=== PATIENT | male | born 1950 | race Caucasian/White ===

== ENCOUNTER 2021-02-01 18:09 | Inpatient (IN) ==
[2021-02-01] MEDS ORDERED: methylPREDNISolone 125 MG/2 ML VIAL IVP ONE (18:24)
[2021-02-01] MEDS ORDERED: Ipratropium/Albuterol Neb 3 ML IH ONE (18:45)
[2021-02-01 18:46] LABS: Basophils # 0.1 K/mcL (0.0-0.2); Basophils % 0.5 %; Hematocrit 45.4 % (37.5-50.1); Hemoglobin 14.4 g/dL (12.9-16.9); Immature Granulocytes % 0.8 % (0-4); Lymphocytes # 0.5 K/mcL (0.6-4.6); Lymphocytes % 4.6 %; Mean Corpuscular HGB Conc 31.7 g/dL (31.6-35.5); Mean Corpuscular Hemoglobin 30.9 pg (28.0-33.3); Mean Corpuscular Volume 97.4 fL (83.0-100.0); Mean Platelet Volume 10.5 fL (9.4-12.4); Monocytes # 0.8 K/mcL (0.0-1.3); Monocytes % 7.7 %; Neutrophils # 8.6 K/mcL (1.6-8.9); Platelet Count 245 K/mcL (140-400); Red Blood Count 4.66 M/mcL (4.19-5.50); Red Cell Distribution Width 14.6 % (11.5-14.5); Segmented Neutrophils % 86.4 %; White Blood Count 9.9 K/mcL (4.3-11.1)
[2021-02-01 18:51] LABS: VBG HCO3 24 mEq/L (21-27); VBG PCO2 54 mmHg (41-51); VBG PH 7.26 pH Units (7.32-7.42); VBG PO2 41 mmHg (25-50)
[2021-02-01] MEDS ORDERED: *HR* Digoxin 0.5 MG/2 ML AMPUL IVP ONE (18:54)
[2021-02-01 19:07] LABS: INR 12.1; Prothrombin Time 130.8 Seconds (9.4-12.1)
[2021-02-01 19:09] LABS: Alanine Aminotransferase 18 Units/L (7-52); Albumin 3.6 g/dL (3.5-5.7); Albumin/Globulin Ratio 0.9 (1.1-2.2); Alkaline Phosphatase 137 Units/L (34-104); Aspartate Amino Transferase 44 Units/L (13-39); BUN/Creatinine Ratio 22 (6-26); Bilirubin,Direct 1.2 mg/dL (0.0-0.2); Bilirubin,Indirect 1.2 mg/dL (0.0-1.0); Bilirubin,Total 2.4 mg/dL (0.3-1.0); Blood Urea Nitrogen 28 mg/dL (8-23); Calcium 8.7 mg/dL (8.6-10.3); Carbon Dioxide 21 mEq/L (23-29); Chloride 93 mEq/L (98-107); Globulin 3.9 g/dL (2.4-3.5); Glucose 108 mg/dL (70-105); Osmolality,Calculated 278 (280-300); Potassium 4.2 mEq/L (3.5-5.1); Sodium 131 mEq/L (136-145); Total Protein 7.5 g/dL (6.4-8.9); eGFR For African Americans > 60 (> 60); eGFR For Non-African Americans 55 (> 60)
[2021-02-01] MEDS ORDERED: Vancomycin 2,000 MG/520 ML IV.SOLN IVPB ONE (19:09)
[2021-02-01] MEDS ORDERED: Piperacillin/Tazobactam 3.375 GM in Water for inj. (sterile) 20 ML IVP ONE (19:09)
[2021-02-01 19:12] LABS: Troponin I 0.15 ng/mL (< 0.04)
[2021-02-01] MEDS ORDERED: Furosemide 60 MG in 0.9 % Sodium Chloride 50 ML IV ONE (19:23)
[2021-02-01] MEDS: Norepinephrine 4 MG/254 ML IV.SOLN IVC SCH ×2 (19:37→21:37)
[2021-02-01 20:00] LABS: Digoxin 1.2 ng/mL (0.8-2.0)
[2021-02-01] MEDS ORDERED: Isovue-370 500 ML BOTTLE IVP ONE (20:13)
[2021-02-01] MEDS ORDERED: Naloxone 0.4 MG/ML INJ IVP PRN (20:14)
[2021-02-01] MEDS ORDERED: Ondansetron 4 MG/2 ML VIAL IVP PRN (20:14)
[2021-02-01 20:32] LABS: Adenovirus Not Detected (Not Detect); Coronavirus 229E Not Detected (Not Detect); Coronavirus HKU1 Not Detected (Not Detect); Coronavirus NL63 Not Detected (Not Detect); Coronavirus OC43 Not Detected (Not Detect)
[2021-02-01 20:37] LABS: Bordetella Pertussis Not Detected (Not Detect); Chlamydophila pneumoniae Not Detected (Not Detect); Human Metapneumovirus Not Detected (Not Detect); Human Rhinovirus/Enterovirus Not Detected (Not Detect); Influenza A Subtype 2009 H1 Not Detected (Not Detect); Influenza B Not Detected (Not Detect); Mycoplasma pneumoniae Not Detected (Not Detect); Parainfluenza Virus 1 Not Detected (Not Detect); Parainfluenza Virus 2 Not Detected (Not Detect); Parainfluenza Virus 3 Not Detected (Not Detect); Parainfluenza Virus 4 Not Detected (Not Detect); Respiratory Syncytial Virus Not Detected (Not Detect)
[2021-02-01 20:42] LABS: SARS-CoV-2 DETECTED (Not Detect)
[2021-02-01 20:44] LABS: Bilirubin,Urine Negative (Negative); Blood,Urine Small (Negative); Clarity,Urine Turbid (Clear); Color,Urine Yellow (Yellow); Glucose,Urine (UA) Normal (Normal); Hyaline Casts,Urine Many per lpf (None Seen); Ketones,Urine Negative (Negative); Leukocyte Esterase,Urine Negative (Negative); Mucus,Urine Few per lpf (None-Few); Nitrite,Urine Negative (Negative); Protein,Urine 30 mg/dL (Neg-Trace); Specific Gravity,Urine 1.014 (1.010-1.025)
[2021-02-01] MEDS ORDERED: Acetaminophen 325 MG TABLET PO PRN (21:07)
[2021-02-01] MEDS ORDERED: Benzonatate 100 MG CAPSULE PO PRN (21:07)
[2021-02-01] MEDS ORDERED: Tiotropium 10 INH DOSE IH SCH (21:15)
[2021-02-01 21:24] LABS: Sodium, Urine 14.6 mEq/L
[2021-02-01] MEDS: Zinc Sulfate 220 MG CAPSULE PO SCH (22:23)
[2021-02-02] MEDS: Ipratropium 1 PUFF INHALER IH SCH ×6 (00:25→20:10)
[2021-02-02 01:05] LABS: Bacteria,Urine Few per hpf (None-Few); Bilirubin,Urine Negative (Negative); Blood,Urine Small (Negative); Clarity,Urine Clear (Clear); Color,Urine Yellow (Yellow); Glucose,Urine (UA) Normal (Normal); Granular Casts,Urine Few per lpf (None Seen); Hyaline Casts,Urine Few per lpf (None Seen); Ketones,Urine Negative (Negative); Leukocyte Esterase,Urine Negative (Negative); Mucus,Urine Few per lpf (None-Few); Nitrite,Urine Negative (Negative); Protein,Urine Trace mg/dL (Neg-Trace); RBC,Urine 0-3 per hpf (0-3); Specific Gravity,Urine 1.028 (1.010-1.025); Squamous Epithelial Cell,Urine Few per hpf (None-Few); Urobilinogen,Urine Normal (Normal); WBC,Urine 0-3 per hpf (0-3)
[2021-02-02 01:08] LABS: ABG Base Excess -1 mEq/L (-2 to 3); ABG HCO3 29 mEq/L (21-27); ABG Oxygen Saturation 83 % (95-98); ABG PCO2 66 mmHg (35-45); ABG PH 7.24 pH Units (7.32-7.45); ABG PO2 57 mmHg (85-104); ABG TCO2 31 mEq/L (20-26); Blood Gas VT 500 cc
[2021-02-02 05:56] LABS: Hematocrit 44.7 % (37.5-50.1); Hemoglobin 13.9 g/dL (12.9-16.9); Mean Corpuscular HGB Conc 31.1 g/dL (31.6-35.5); Mean Corpuscular Hemoglobin 30.5 pg (28.0-33.3); Mean Corpuscular Volume 98.2 fL (83.0-100.0); Platelet Count 234 K/mcL (140-400); Red Blood Count 4.55 M/mcL (4.19-5.50); Red Cell Distribution Width 14.6 % (11.5-14.5); White Blood Count 8.5 K/mcL (4.3-11.1)
[2021-02-02] MEDS: Doxycycline 100 MG in 0.9 % Sodium Chloride Mini Bag 100 ML IVPB SCH ×2 (05:57→17:47)
[2021-02-02 06:07] LABS: Alanine Aminotransferase 15 Units/L (7-52); Albumin 3.2 g/dL (3.5-5.7); Albumin/Globulin Ratio 0.9 (1.1-2.2); Alkaline Phosphatase 109 Units/L (34-104); Aspartate Amino Transferase 38 Units/L (13-39); BUN/Creatinine Ratio 29 (6-26); Bilirubin,Total 1.5 mg/dL (0.3-1.0); Blood Urea Nitrogen 31 mg/dL (8-23); Calcium 8.3 mg/dL (8.6-10.3); Carbon Dioxide 26 mEq/L (23-29); Chloride 97 mEq/L (98-107); Chol/HDL Ratio 5.5 (0-4.9); Cholesterol 71 mg/dL (< 200); Globulin 3.4 g/dL (2.4-3.5); Glucose 145 mg/dL (70-105); HDL Cholesterol 13 mg/dL (40-59); LDL Cholesterol,Calculated 45 mg/dL (< 100); Osmolality,Calculated 283 (280-300); Potassium 4.3 mEq/L (3.5-5.1); Sodium 132 mEq/L (136-145); Total Protein 6.6 g/dL (6.4-8.9); Triglycerides 64 mg/dL (< 150); eGFR For African Americans > 60 (> 60); eGFR For Non-African Americans > 60 (> 60)
[2021-02-02 06:09] LABS: Magnesium 2.4 mg/dL (1.6-2.6); Phosphorous 4.3 mg/dL (2.7-4.5)
[2021-02-02 06:12] LABS: Troponin I 0.11 ng/mL (< 0.04)
[2021-02-02 06:14] LABS: ABG Base Excess 0 mEq/L (-2 to 3); ABG HCO3 29 mEq/L (21-27); ABG Oxygen Saturation 78 % (95-98); ABG PCO2 64 mmHg (35-45); ABG PH 7.26 pH Units (7.32-7.45); ABG PO2 50 mmHg (85-104); ABG TCO2 31 mEq/L (20-26); Blood Gas VT 500 cc
[2021-02-02 06:27] LABS: INR 10.6
[2021-02-02] MEDS: cefTRIAXone 1,000 MG in Water for inj. (sterile) 10 ML IVP SCH (07:47)
[2021-02-02] MEDS: Furosemide 40 MG/4 ML VIAL IVP SCH ×2 (07:48→17:44)
[2021-02-02] MEDS: Zinc Sulfate 220 MG CAPSULE PO SCH (07:49)
[2021-02-02] MEDS ORDERED: Pantoprazole 40 MG VIAL IVP ONE (11:13)
[2021-02-02] MEDS: Norepinephrine 4 MG/254 ML IV.SOLN IVC SCH (19:15)
[2021-02-03] MEDS: Ipratropium 1 PUFF INHALER IH SCH ×7 (00:27→23:46)
[2021-02-03] MEDS: Doxycycline 100 MG in 0.9 % Sodium Chloride Mini Bag 100 ML IVPB SCH ×2 (06:28→17:43)
[2021-02-03 07:18] LABS: Hematocrit 44.9 % (37.5-50.1); Hemoglobin 14.3 g/dL (12.9-16.9); Mean Corpuscular HGB Conc 31.8 g/dL (31.6-35.5); Mean Corpuscular Hemoglobin 30.7 pg (28.0-33.3); Mean Corpuscular Volume 96.4 fL (83.0-100.0); Mean Platelet Volume 10.6 fL (9.4-12.4); Platelet Count 248 K/mcL (140-400); Red Blood Count 4.66 M/mcL (4.19-5.50); Red Cell Distribution Width 14.3 % (11.5-14.5); White Blood Count 12.6 K/mcL (4.3-11.1)
[2021-02-03 07:39] LABS: INR 3.2; Prothrombin Time 35.4 Seconds (9.4-12.1)
[2021-02-03 08:10] LABS: BUN/Creatinine Ratio 43 (6-26); Blood Urea Nitrogen 36 mg/dL (8-23); Calcium 8.9 mg/dL (8.6-10.3); Carbon Dioxide 28 mEq/L (23-29); Chloride 104 mEq/L (98-107); Glucose 131 mg/dL (70-105); Osmolality,Calculated 304 (280-300); Potassium 4.6 mEq/L (3.5-5.1); Sodium 142 mEq/L (136-145); eGFR For African Americans > 60 (> 60); eGFR For Non-African Americans > 60 (> 60)
[2021-02-03] MEDS: Dexamethasone Sodium Phos/PF 10 MG/ML VIAL IVP SCH (08:33)
[2021-02-03] MEDS: Furosemide 40 MG/4 ML VIAL IVP SCH ×2 (08:36→17:43)
[2021-02-03] MEDS: Pantoprazole 40 MG VIAL IVP SCH (08:36)
[2021-02-03] MEDS: cefTRIAXone 1,000 MG in Water for inj. (sterile) 10 ML IVP SCH (08:36)
[2021-02-03] MEDS: Zinc Sulfate 220 MG CAPSULE PO SCH (08:36)
[2021-02-03] MEDS: *HR* Enoxaparin 120 MG/0.8 ML SYRINGE SQ SCH (17:58)
[2021-02-04] MEDS: Ipratropium 1 PUFF INHALER IH SCH ×6 (04:04→23:35)
[2021-02-04 05:12] LABS: INR 3.3; Prothrombin Time 36.6 Seconds (9.4-12.1)
[2021-02-04 05:16] LABS: Hematocrit 39.9 % (37.5-50.1); Hemoglobin 13.5 g/dL (12.9-16.9); Red Blood Count 4.28 M/mcL (4.19-5.50); White Blood Count 10.1 K/mcL (4.3-11.1)
[2021-02-04 05:17] LABS: Basophils % 0.1 %; Immature Granulocytes % 0.3 % (0-4); Lymphocytes # 0.2 K/mcL (0.6-4.6); Lymphocytes % 2.4 %; Mean Corpuscular HGB Conc 33.8 g/dL (31.6-35.5); Mean Corpuscular Hemoglobin 31.5 pg (28.0-33.3); Mean Corpuscular Volume 93.2 fL (83.0-100.0); Mean Platelet Volume 10.9 fL (9.4-12.4); Monocytes # 0.4 K/mcL (0.0-1.3); Monocytes % 3.9 %; Neutrophils # 9.4 K/mcL (1.6-8.9); Platelet Count 241 K/mcL (140-400); Segmented Neutrophils % 93.3 %
[2021-02-04 05:19] LABS: Alanine Aminotransferase 16 Units/L (7-52); Albumin 3.3 g/dL (3.5-5.7); Albumin/Globulin Ratio 0.9 (1.1-2.2); Alkaline Phosphatase 101 Units/L (34-104); Aspartate Amino Transferase 41 Units/L (13-39); BUN/Creatinine Ratio 49 (6-26); Bilirubin,Total 1.2 mg/dL (0.3-1.0); Blood Urea Nitrogen 44 mg/dL (8-23); Calcium 8.7 mg/dL (8.6-10.3); Carbon Dioxide 26 mEq/L (23-29); Chloride 97 mEq/L (98-107); Globulin 3.5 g/dL (2.4-3.5); Glucose 157 mg/dL (70-105); Osmolality,Calculated 288 (280-300); Sodium 132 mEq/L (136-145); Total Protein 6.8 g/dL (6.4-8.9); eGFR For African Americans > 60 (> 60); eGFR For Non-African Americans > 60 (> 60)
[2021-02-04] MEDS: *HR* Enoxaparin 120 MG/0.8 ML SYRINGE SQ SCH (05:57)
[2021-02-04] MEDS: Doxycycline 100 MG in 0.9 % Sodium Chloride Mini Bag 100 ML IVPB SCH ×2 (05:58→17:30)
[2021-02-04 06:08] LABS: Magnesium 2.5 mg/dL (1.6-2.6); Phosphorous 2.3 mg/dL (2.7-4.5)
[2021-02-04 06:28] LABS: VBG Ionized Calcium 1.16 mmol/L (1.15-1.35)
[2021-02-04] MEDS: Zinc Sulfate 220 MG CAPSULE PO SCH (07:26)
[2021-02-04] MEDS: Pantoprazole 40 MG VIAL IVP SCH (07:27)
[2021-02-04] MEDS: cefTRIAXone 1,000 MG in Water for inj. (sterile) 10 ML IVP SCH (07:27)
[2021-02-04] MEDS: Dexamethasone Sodium Phos/PF 10 MG/ML VIAL IVP SCH (07:27)
[2021-02-04] MEDS: Norepinephrine 4 MG/254 ML IV.SOLN IVC SCH ×2 (07:28→22:19)
[2021-02-04] MEDS: Furosemide 40 MG/4 ML VIAL IVP SCH ×2 (07:28→17:29)
[2021-02-04] MEDS ORDERED: Perflutren Lipid Microsphere 1.3 ML in 0.9 % Sodium Chloride 8.7 ML IVP PRN (15:03)
[2021-02-05] MEDS: Ipratropium 1 PUFF INHALER IH SCH ×5 (03:25→20:04)
[2021-02-05 05:06] LABS: Basophils % 0.1 %; Hematocrit 39.8 % (37.5-50.1); Hemoglobin 13.3 g/dL (12.9-16.9); Immature Granulocytes % 0.6 % (0-4); Lymphocytes # 0.2 K/mcL (0.6-4.6); Lymphocytes % 2.1 %; Mean Corpuscular HGB Conc 33.4 g/dL (31.6-35.5); Mean Corpuscular Volume 92.8 fL (83.0-100.0); Monocytes # 0.6 K/mcL (0.0-1.3); Monocytes % 5.3 %; Neutrophils # 9.5 K/mcL (1.6-8.9); Platelet Count 230 K/mcL (140-400); Red Blood Count 4.29 M/mcL (4.19-5.50); Red Cell Distribution Width 14.1 % (11.5-14.5); Segmented Neutrophils % 91.9 %; White Blood Count 10.4 K/mcL (4.3-11.1)
[2021-02-05 05:11] LABS: BUN/Creatinine Ratio 44 (6-26); Blood Urea Nitrogen 47 mg/dL (8-23); Calcium 8.6 mg/dL (8.6-10.3); Carbon Dioxide 28 mEq/L (23-29); Chloride 98 mEq/L (98-107); Glucose 129 mg/dL (70-105); Magnesium 2.5 mg/dL (1.6-2.6); Osmolality,Calculated 294 (280-300); Phosphorous 3.2 mg/dL (2.7-4.5); Potassium 4.1 mEq/L (3.5-5.1); Sodium 135 mEq/L (136-145); eGFR For African Americans > 60 (> 60); eGFR For Non-African Americans > 60 (> 60)
[2021-02-05] MEDS: Doxycycline 100 MG in 0.9 % Sodium Chloride Mini Bag 100 ML IVPB SCH ×2 (06:14→17:05)
[2021-02-05 06:59] LABS: INR 4.4
[2021-02-05] MEDS: Pantoprazole 40 MG VIAL IVP SCH (07:27)
[2021-02-05] MEDS: cefTRIAXone 1,000 MG in Water for inj. (sterile) 10 ML IVP SCH (07:27)
[2021-02-05] MEDS: Dexamethasone Sodium Phos/PF 10 MG/ML VIAL IVP SCH (07:28)
[2021-02-05] MEDS: Furosemide 40 MG/4 ML VIAL IVP SCH ×2 (07:28→17:05)
[2021-02-05] MEDS: Zinc Sulfate 220 MG CAPSULE PO SCH (07:28)
[2021-02-05] MEDS ORDERED: *HR* Phytonadione 5 MG TABLET PO ONE (08:30)
[2021-02-05] MEDS ORDERED: *HR* Enoxaparin 120 MG/0.8 ML SYRINGE SQ SCH (09:00)
[2021-02-05] MEDS: Norepinephrine 4 MG/254 ML IV.SOLN IVC SCH (19:30)
[2021-02-06 03:56] LABS: Basophils % 0.1 %; Hematocrit 40.9 % (37.5-50.1); Hemoglobin 13.1 g/dL (12.9-16.9); Immature Granulocytes % 0.6 % (0-4); Lymphocytes # 0.3 K/mcL (0.6-4.6); Lymphocytes % 1.6 %; Mean Corpuscular Hemoglobin 30.2 pg (28.0-33.3); Mean Corpuscular Volume 94.2 fL (83.0-100.0); Mean Platelet Volume 11.3 fL (9.4-12.4); Monocytes # 0.7 K/mcL (0.0-1.3); Monocytes % 4.7 %; Neutrophils # 14.5 K/mcL (1.6-8.9); Platelet Count 204 K/mcL (140-400); Red Blood Count 4.34 M/mcL (4.19-5.50); Red Cell Distribution Width 14.1 % (11.5-14.5)
[2021-02-06 03:58] LABS: White Blood Count 15.6 K/mcL (4.3-11.1)
[2021-02-06 04:07] LABS: INR 4.2
[2021-02-06] MEDS: Ipratropium 1 PUFF INHALER IH SCH ×7 (04:10→23:27)
[2021-02-06 04:14] LABS: BUN/Creatinine Ratio 46 (6-26); Blood Urea Nitrogen 46 mg/dL (8-23); Calcium 8.7 mg/dL (8.6-10.3); Carbon Dioxide 30 mEq/L (23-29); Chloride 100 mEq/L (98-107); Glucose 124 mg/dL (70-105); Magnesium 2.5 mg/dL (1.6-2.6); Osmolality,Calculated 297 (280-300); Phosphorous 2.9 mg/dL (2.7-4.5); Potassium 4.1 mEq/L (3.5-5.1); Sodium 137 mEq/L (136-145); eGFR For African Americans > 60 (> 60); eGFR For Non-African Americans > 60 (> 60)
[2021-02-06] MEDS: Doxycycline 100 MG in 0.9 % Sodium Chloride Mini Bag 100 ML IVPB SCH ×2 (06:05→18:05)
[2021-02-06] MEDS: Furosemide 40 MG/4 ML VIAL IVP SCH (08:34)
[2021-02-06] MEDS: Pantoprazole 40 MG VIAL IVP SCH (08:34)
[2021-02-06] MEDS: Dexamethasone Sodium Phos/PF 10 MG/ML VIAL IVP SCH (08:34)
[2021-02-06] MEDS: Zinc Sulfate 220 MG CAPSULE PO SCH (08:35)
[2021-02-06] MEDS ORDERED: *HR* Enoxaparin 120 MG/0.8 ML SYRINGE SQ SCH (10:00)
[2021-02-06] MEDS ORDERED: *HR* Phytonadione 5 MG TABLET PO ONE (11:02)
[2021-02-06] MEDS: Furosemide 240 MG in 0.9 % Sodium Chloride 96 ML IVC SCH (11:19)
[2021-02-06 22:09] LABS: BUN/Creatinine Ratio 49 (6-26); Blood Urea Nitrogen 47 mg/dL (8-23); Calcium 8.2 mg/dL (8.6-10.3); Carbon Dioxide 29 mEq/L (23-29); Chloride 100 mEq/L (98-107); Glucose 251 mg/dL (70-105); Magnesium 2.2 mg/dL (1.6-2.6); Osmolality,Calculated 305 (280-300); Potassium 4.1 mEq/L (3.5-5.1); Sodium 137 mEq/L (136-145); eGFR For African Americans > 60 (> 60); eGFR For Non-African Americans > 60 (> 60)
[2021-02-07 03:23] LABS: Basophils % 0.1 %; Hematocrit 41.9 % (37.5-50.1); Hemoglobin 13.6 g/dL (12.9-16.9); Immature Granulocytes % 0.8 % (0-4); Lymphocytes # 0.3 K/mcL (0.6-4.6); Lymphocytes % 1.5 %; Mean Corpuscular HGB Conc 32.5 g/dL (31.6-35.5); Mean Corpuscular Hemoglobin 30.4 pg (28.0-33.3); Mean Corpuscular Volume 93.5 fL (83.0-100.0); Mean Platelet Volume 11.6 fL (9.4-12.4); Monocytes # 0.5 K/mcL (0.0-1.3); Monocytes % 3.2 %; Neutrophils # 15.9 K/mcL (1.6-8.9); Nucleated Red Blood Cells 0.1 /100 WBC (0); Platelet Count 194 K/mcL (140-400); Red Blood Count 4.48 M/mcL (4.19-5.50); Red Cell Distribution Width 14.2 % (11.5-14.5); Segmented Neutrophils % 94.4 %; White Blood Count 16.9 K/mcL (4.3-11.1)
[2021-02-07] MEDS: Ipratropium 1 PUFF INHALER IH SCH ×6 (03:25→23:33)
[2021-02-07 03:38] LABS: BUN/Creatinine Ratio 52 (6-26); Blood Urea Nitrogen 45 mg/dL (8-23); Calcium 8.6 mg/dL (8.6-10.3); Carbon Dioxide 31 mEq/L (23-29); Chloride 100 mEq/L (98-107); Glucose 149 mg/dL (70-105); Magnesium 2.2 mg/dL (1.6-2.6); Osmolality,Calculated 300 (280-300); Phosphorous 2.7 mg/dL (2.7-4.5); Potassium 4.2 mEq/L (3.5-5.1); Sodium 138 mEq/L (136-145); eGFR For African Americans > 60 (> 60); eGFR For Non-African Americans > 60 (> 60)
[2021-02-07 05:22] LABS: INR 2.8; Prothrombin Time 31.7 Seconds (9.4-12.1)
[2021-02-07] MEDS ORDERED: 0.9 % Sodium Chloride 1,000 ML ONE (08:42)
[2021-02-07] MEDS: Zinc Sulfate 220 MG CAPSULE PO SCH (08:43)
[2021-02-07] MEDS: Pantoprazole 40 MG VIAL IVP SCH (08:43)
[2021-02-07] MEDS: Dexamethasone Sodium Phos/PF 10 MG/ML VIAL IVP SCH (08:44)
[2021-02-07] MEDS: Furosemide 240 MG in 0.9 % Sodium Chloride 96 ML IVC SCH (09:37)
[2021-02-07 11:09] LABS: Alanine Aminotransferase 26 Units/L (7-52); Albumin 3.3 g/dL (3.5-5.7); Albumin/Globulin Ratio 0.9 (1.1-2.2); Alkaline Phosphatase 105 Units/L (34-104); Aspartate Amino Transferase 43 Units/L (13-39); Bilirubin,Direct 0.4 mg/dL (0.0-0.2); Bilirubin,Indirect 0.7 mg/dL (0.0-1.0); Bilirubin,Total 1.1 mg/dL (0.3-1.0); C-Reactive Protein 35 mg/L (Less than 10); Globulin 3.8 g/dL (2.4-3.5); Total Protein 7.1 g/dL (6.4-8.9)
[2021-02-07] MEDS: *HR* Enoxaparin 120 MG/0.8 ML SYRINGE SQ SCH (17:20)
[2021-02-08] MEDS: Ipratropium 1 PUFF INHALER IH SCH ×5 (03:46→20:16)
[2021-02-08 04:33] LABS: Basophils % 0.2 %; Hemoglobin 13.8 g/dL (12.9-16.9); Immature Granulocytes % 0.8 % (0-4); Lymphocytes # 0.3 K/mcL (0.6-4.6); Lymphocytes % 1.6 %; Mean Corpuscular HGB Conc 32.1 g/dL (31.6-35.5); Mean Corpuscular Hemoglobin 30.3 pg (28.0-33.3); Mean Corpuscular Volume 94.5 fL (83.0-100.0); Mean Platelet Volume 11.9 fL (9.4-12.4); Monocytes # 0.4 K/mcL (0.0-1.3); Monocytes % 2.4 %; Neutrophils # 17.4 K/mcL (1.6-8.9); Platelet Count 175 K/mcL (140-400); Red Blood Count 4.55 M/mcL (4.19-5.50); Red Cell Distribution Width 14.2 % (11.5-14.5); White Blood Count 18.3 K/mcL (4.3-11.1)
[2021-02-08 04:53] LABS: BUN/Creatinine Ratio 55 (6-26); Blood Urea Nitrogen 40 mg/dL (8-23); Calcium 8.5 mg/dL (8.6-10.3); Carbon Dioxide 35 mEq/L (23-29); Chloride 98 mEq/L (98-107); Glucose 129 mg/dL (70-105); Osmolality,Calculated 301 (280-300); Phosphorous 2.7 mg/dL (2.7-4.5); Potassium 4.4 mEq/L (3.5-5.1); Sodium 140 mEq/L (136-145); eGFR For African Americans > 60 (> 60); eGFR For Non-African Americans > 60 (> 60)
[2021-02-08] MEDS: *HR* Enoxaparin 120 MG/0.8 ML SYRINGE SQ SCH ×2 (06:04→18:22)
[2021-02-08] MEDS: Dexamethasone Sodium Phos/PF 10 MG/ML VIAL IVP SCH (08:16)
[2021-02-08] MEDS: Pantoprazole 40 MG VIAL IVP SCH (08:16)
[2021-02-08] MEDS: Zinc Sulfate 220 MG CAPSULE PO SCH (08:17)
[2021-02-08] MEDS: Furosemide 240 MG in 0.9 % Sodium Chloride 96 ML IVC SCH (12:15)
[2021-02-09] MEDS: Ipratropium 1 PUFF INHALER IH SCH ×7 (00:04→23:57)
[2021-02-09 04:15] LABS: Basophils % 0.1 %; Hematocrit 44.5 % (37.5-50.1); Hemoglobin 14.3 g/dL (12.9-16.9); Immature Granulocytes % 0.8 % (0-4); Lymphocytes # 0.4 K/mcL (0.6-4.6); Lymphocytes % 2.4 %; Mean Corpuscular HGB Conc 32.1 g/dL (31.6-35.5); Mean Corpuscular Hemoglobin 30.4 pg (28.0-33.3); Mean Corpuscular Volume 94.7 fL (83.0-100.0); Monocytes # 0.3 K/mcL (0.0-1.3); Monocytes % 1.8 %; Neutrophils # 14.4 K/mcL (1.6-8.9); Platelet Count 147 K/mcL (140-400); Red Cell Distribution Width 14.2 % (11.5-14.5); Segmented Neutrophils % 94.9 %; White Blood Count 15.2 K/mcL (4.3-11.1)
[2021-02-09 04:25] LABS: INR 2.4; Prothrombin Time 27.1 Seconds (9.4-12.1)
[2021-02-09 04:33] LABS: BUN/Creatinine Ratio 49 (6-26); Blood Urea Nitrogen 38 mg/dL (8-23); Calcium 8.7 mg/dL (8.6-10.3); Carbon Dioxide 38 mEq/L (23-29); Chloride 96 mEq/L (98-107); Glucose 124 mg/dL (70-105); Magnesium 2.2 mg/dL (1.6-2.6); Osmolality,Calculated 296 (280-300); Potassium 4.7 mEq/L (3.5-5.1); Sodium 138 mEq/L (136-145); eGFR For African Americans > 60 (> 60); eGFR For Non-African Americans > 60 (> 60)
[2021-02-09] MEDS: *HR* Enoxaparin 120 MG/0.8 ML SYRINGE SQ SCH ×2 (06:21→17:06)
[2021-02-09] MEDS: Zinc Sulfate 220 MG CAPSULE PO SCH (07:59)
[2021-02-09] MEDS: Pantoprazole 40 MG VIAL IVP SCH (08:00)
[2021-02-09] MEDS: Dexamethasone Sodium Phos/PF 10 MG/ML VIAL IVP SCH (08:00)
[2021-02-09] MEDS: Furosemide 240 MG in 0.9 % Sodium Chloride 96 ML IVC SCH (19:38)
[2021-02-10] MEDS: Ipratropium 1 PUFF INHALER IH SCH ×5 (04:11→20:31)
[2021-02-10 04:58] LABS: Basophils % 0.1 %; Hematocrit 43.3 % (37.5-50.1); Immature Granulocytes % 1.2 % (0-4); Lymphocytes # 0.3 K/mcL (0.6-4.6); Lymphocytes % 2.3 %; Mean Corpuscular HGB Conc 32.3 g/dL (31.6-35.5); Mean Corpuscular Hemoglobin 30.6 pg (28.0-33.3); Mean Corpuscular Volume 94.5 fL (83.0-100.0); Mean Platelet Volume 12.5 fL (9.4-12.4); Monocytes # 0.4 K/mcL (0.0-1.3); Monocytes % 2.6 %; Neutrophils # 13.5 K/mcL (1.6-8.9); Platelet Count 141 K/mcL (140-400); Red Blood Count 4.58 M/mcL (4.19-5.50); Red Cell Distribution Width 14.3 % (11.5-14.5); Segmented Neutrophils % 93.8 %; White Blood Count 14.4 K/mcL (4.3-11.1)
[2021-02-10 05:08] LABS: Prothrombin Time 22.5 Seconds (9.4-12.1)
[2021-02-10] MEDS: *HR* Enoxaparin 120 MG/0.8 ML SYRINGE SQ SCH ×2 (05:08→16:56)
[2021-02-10 05:16] LABS: BUN/Creatinine Ratio 55 (6-26); Blood Urea Nitrogen 39 mg/dL (8-23); Calcium 8.6 mg/dL (8.6-10.3); Carbon Dioxide 40 mEq/L (23-29); Chloride 95 mEq/L (98-107); Glucose 119 mg/dL (70-105); Magnesium 2.2 mg/dL (1.6-2.6); Osmolality,Calculated 295 (280-300); Phosphorous 3.6 mg/dL (2.7-4.5); Potassium 4.8 mEq/L (3.5-5.1); Sodium 137 mEq/L (136-145); eGFR For African Americans > 60 (> 60); eGFR For Non-African Americans > 60 (> 60)
[2021-02-10] MEDS ORDERED: acetaZOLAMIDE 375 MG in Water for inj. (sterile) 3.75 ML IVP ONE (06:58)
[2021-02-10] MEDS: Zinc Sulfate 220 MG CAPSULE PO SCH (08:11)
[2021-02-10] MEDS: Dexamethasone Sodium Phos/PF 10 MG/ML VIAL IVP SCH (08:11)
[2021-02-10] MEDS: Pantoprazole 40 MG VIAL IVP SCH (08:11)
[2021-02-10 14:10] LABS: ABG Base Excess 9 mEq/L (-2 to 3); ABG HCO3 38 mEq/L (21-27); ABG Oxygen Saturation 90 % (95-98); ABG PCO2 67 mmHg (35-45); ABG PH 7.36 pH Units (7.32-7.45); ABG PO2 64 mmHg (85-104); ABG TCO2 40 mEq/L (20-26); Blood Gas Modality AVAPS; Blood Gas VT 500 cc
[2021-02-11] MEDS: Ipratropium 1 PUFF INHALER IH SCH ×7 (00:01→23:23)
[2021-02-11 04:02] LABS: Hematocrit 43.7 % (37.5-50.1); Hemoglobin 13.9 g/dL (12.9-16.9); Mean Corpuscular HGB Conc 31.8 g/dL (31.6-35.5); Mean Corpuscular Hemoglobin 30.3 pg (28.0-33.3); Mean Corpuscular Volume 95.2 fL (83.0-100.0); Mean Platelet Volume 12.7 fL (9.4-12.4); Platelet Count 143 K/mcL (140-400); Red Blood Count 4.59 M/mcL (4.19-5.50); Red Cell Distribution Width 14.2 % (11.5-14.5); White Blood Count 14.6 K/mcL (4.3-11.1)
[2021-02-11 04:11] LABS: INR 1.7; Prothrombin Time 19.5 Seconds (9.4-12.1)
[2021-02-11 04:21] LABS: BUN/Creatinine Ratio 54 (6-26); Blood Urea Nitrogen 35 mg/dL (8-23); Calcium 9.1 mg/dL (8.6-10.3); Carbon Dioxide 38 mEq/L (23-29); Chloride 94 mEq/L (98-107); Glucose 161 mg/dL (70-105); Magnesium 2.5 mg/dL (1.6-2.6); Osmolality,Calculated 293 (280-300); Phosphorous 3.7 mg/dL (2.7-4.5); Potassium 5.1 mEq/L (3.5-5.1); Sodium 136 mEq/L (136-145); eGFR For African Americans > 60 (> 60); eGFR For Non-African Americans > 60 (> 60)
[2021-02-11] MEDS: *HR* Enoxaparin 120 MG/0.8 ML SYRINGE SQ SCH ×2 (06:08→17:47)
[2021-02-11] MEDS: Pantoprazole 40 MG VIAL IVP SCH (08:00)
[2021-02-11] MEDS: Furosemide 240 MG in 0.9 % Sodium Chloride 96 ML IVC SCH (08:00)
[2021-02-11] MEDS: Zinc Sulfate 220 MG CAPSULE PO SCH (08:02)
[2021-02-11] MEDS: Dexamethasone Sodium Phos/PF 10 MG/ML VIAL IVP SCH (08:02)
[2021-02-11] MEDS ORDERED: Dexmedetomidine HCl 400 MCG/100 ML MLS IVC ONE (17:57)
[2021-02-11] MEDS: Dexmedetomidine HCl 400 MCG/100 ML MLS IVC SCH (19:18)
[2021-02-11] MEDS ORDERED: QUEtiapine Fumarate 25 MG TABLET PO SCH (21:00)
[2021-02-12] MEDS: Ipratropium 1 PUFF INHALER IH SCH ×6 (03:52→23:35)
[2021-02-12 03:53] LABS: Basophils % 0.1 %; Hematocrit 42.1 % (37.5-50.1); Hemoglobin 13.8 g/dL (12.9-16.9); Immature Granulocytes % 0.6 % (0-4); Lymphocytes # 0.3 K/mcL (0.6-4.6); Lymphocytes % 2.2 %; Mean Corpuscular HGB Conc 32.8 g/dL (31.6-35.5); Mean Corpuscular Volume 94.6 fL (83.0-100.0); Mean Platelet Volume 12.9 fL (9.4-12.4); Monocytes # 0.4 K/mcL (0.0-1.3); Monocytes % 2.8 %; Neutrophils # 13.3 K/mcL (1.6-8.9); Platelet Count 118 K/mcL (140-400); Red Blood Count 4.45 M/mcL (4.19-5.50); Segmented Neutrophils % 94.3 %; White Blood Count 14.1 K/mcL (4.3-11.1)
[2021-02-12] MEDS: Dexmedetomidine HCl 400 MCG/100 ML MLS IVC SCH (03:58)
[2021-02-12 03:59] LABS: VBG Ionized Calcium 1.17 mmol/L (1.15-1.35)
[2021-02-12 04:00] LABS: Prothrombin Time 22.5 Seconds (9.4-12.1)
[2021-02-12 04:35] LABS: BUN/Creatinine Ratio 66 (6-26); Blood Urea Nitrogen 39 mg/dL (8-23); Calcium 8.7 mg/dL (8.6-10.3); Carbon Dioxide 40 mEq/L (23-29); Chloride 94 mEq/L (98-107); Glucose 118 mg/dL (70-105); Magnesium 2.2 mg/dL (1.6-2.6); Osmolality,Calculated 296 (280-300); Phosphorous 4.5 mg/dL (2.7-4.5); Potassium 5.1 mEq/L (3.5-5.1); Sodium 138 mEq/L (136-145); eGFR For African Americans > 60 (> 60); eGFR For Non-African Americans > 60 (> 60)
[2021-02-12 04:54] LABS: ABG Base Excess 11 mEq/L (-2 to 3); ABG HCO3 38 mEq/L (21-27); ABG Oxygen Saturation 74 % (95-98); ABG PCO2 61 mmHg (35-45); ABG PH 7.41 pH Units (7.32-7.45); ABG PO2 41 mmHg (85-104); ABG TCO2 40 mEq/L (20-26); Blood Gas Modality AVAPS
[2021-02-12] MEDS: *HR* Enoxaparin 120 MG/0.8 ML SYRINGE SQ SCH ×2 (06:18→17:52)
[2021-02-12] MEDS: Pantoprazole 40 MG VIAL IVP SCH (07:40)
[2021-02-12] MEDS: Albumin Human 5% 12.5 GM/250 ML IV.SOLN IVC SCH ×2 (07:40→12:15)
[2021-02-12] MEDS: Zinc Sulfate 220 MG CAPSULE PO SCH (07:40)
[2021-02-12] MEDS ORDERED: Lidocaine -MPF 1% 5 ML AMPUL INFILT ONE (09:34)
[2021-02-12] MEDS ORDERED: *HR* FentaNYL (PF) 100 MCG/2 ML VIAL ONE (10:42)
[2021-02-12] MEDS ORDERED: *HR* FentaNYL (PF) 100 MCG/2 ML VIAL IVP ONE ×2 (10:48→10:56)
[2021-02-12] MEDS ORDERED: *HR* FentaNYL (PF) 200 MCG/4 ML SYRINGE IVP ONE (10:50)
[2021-02-12] MEDS: Midazolam HCl 50 MG/100 ML IV.SOLN IVC SCH (11:00)
[2021-02-12] MEDS: Cisatracurium 200 MG in 0.9 % Sodium Chloride 180 ML IVC SCH ×2 (11:00→21:59)
[2021-02-12] MEDS: Norepinephrine 4 MG/254 ML IV.SOLN IVC SCH (11:00)
[2021-02-12] MEDS: FentaNYL (PF) 1,000 MCG/100 ML IV.SOLN IVC SCH (11:00)
[2021-02-12] MEDS ORDERED: 0.9 % Sodium Chloride 500 ML ONE (11:14)
[2021-02-12] MEDS ORDERED: Artificial Tears SOLN 15 ML BOTTLE BOTH EYES PRN (11:44)
[2021-02-12] MEDS: Artificial Tears SOLN 15 ML BOTTLE BOTH EYES SCH ×4 (12:00→23:34)
[2021-02-12] MEDS ORDERED: *HR* Rocuronium Bromide 50 MG/5 ML VIAL IVP ONE (12:30)
[2021-02-12] MEDS ORDERED: *HR* Midazolam HCl 5 MG/5 ML VIAL IVP ONE (12:30)
[2021-02-12] MEDS ORDERED: *HR* Propofol 200 MG/20 ML VIAL IVP ONE (12:30)
[2021-02-12] MEDS ORDERED: Lidocaine -MPF 2% 5 ML VIAL SQ ONE (12:30)
[2021-02-12] MEDS ORDERED: Amiodarone Premix 150 MG/100 ML BAG IVPB ONE (14:00)
[2021-02-12] MEDS ORDERED: Amiodarone Premix 360 MG/200 ML BAG IVC ONE (14:20)
[2021-02-12 16:16] LABS: ABG Base Excess 11 mEq/L (-2 to 3); ABG HCO3 43 mEq/L (21-27); ABG Oxygen Saturation 93 % (95-98); ABG PCO2 91 mmHg (35-45); ABG PH 7.29 pH Units (7.32-7.45); ABG PO2 81 mmHg (85-104); ABG TCO2 46 mEq/L (20-26); Blood Gas VT 500 cc
[2021-02-12] MEDS: Piperacillin/Tazobactam 3.375 GM in 0.9 % Sodium Chloride Mini Bag 100 ML IVPB SCH ×2 (16:17→23:34)
[2021-02-12 17:20] LABS: Bilirubin,Urine Small (Negative); Blood,Urine Large (Negative); Clarity,Urine Slightly Cloudy (Clear); Color,Urine Yellow (Yellow); Glucose,Urine (UA) Normal (Normal); Ketones,Urine Negative (Negative); Leukocyte Esterase,Urine Negative (Negative); Nitrite,Urine Negative (Negative); PH,Urine 5.5 pH Units (5.0-8.0); Protein,Urine 100 mg/dL (Neg-Trace); Specific Gravity,Urine >= 1.030 (1.010-1.025); Urobilinogen,Urine Normal (Normal)
[2021-02-12 17:28] LABS: Bacteria,Urine Few per hpf (None-Few); Mucus,Urine Few per lpf (None-Few)
[2021-02-12 18:40] LABS: ABG Base Excess 13 mEq/L (-2 to 3); ABG HCO3 42 mEq/L (21-27); ABG Oxygen Saturation 94 % (95-98); ABG PCO2 74 mmHg (35-45); ABG PH 7.37 pH Units (7.32-7.45); ABG PO2 79 mmHg (85-104); ABG TCO2 45 mEq/L (20-26); Blood Gas VT 500 cc
[2021-02-12] MEDS: Amiodarone Premix 360 MG/200 ML BAG IVC SCH (20:06)
[2021-02-12] MEDS: Chlorhexidine Rinse 15 ML MOUTHWASH MM SCH (20:09)
[2021-02-12 21:52] LABS: ABG Base Excess 11 mEq/L (-2 to 3); ABG HCO3 39 mEq/L (21-27); ABG Oxygen Saturation 93 % (95-98); ABG PCO2 69 mmHg (35-45); ABG PH 7.36 pH Units (7.32-7.45); ABG PO2 73 mmHg (85-104); ABG TCO2 41 mEq/L (20-26); Blood Gas VT 450 cc
[2021-02-13] MEDS: Midazolam HCl 50 MG/100 ML IV.SOLN IVC SCH ×2 (00:03→13:25)
[2021-02-13] MEDS: FentaNYL (PF) 1,000 MCG/100 ML IV.SOLN IVC SCH ×2 (00:03→16:41)
[2021-02-13] MEDS: Dexmedetomidine HCl 400 MCG/100 ML MLS IVC SCH ×2 (00:04→15:04)
[2021-02-13] MEDS: Ipratropium 1 PUFF INHALER IH SCH ×6 (03:40→23:07)
[2021-02-13 03:56] LABS: Basophils % 0.1 %; Hematocrit 42.6 % (37.5-50.1); Hemoglobin 13.4 g/dL (12.9-16.9); Immature Granulocytes % 0.8 % (0-4); Lymphocytes # 0.5 K/mcL (0.6-4.6); Lymphocytes % 2.8 %; Mean Corpuscular HGB Conc 31.5 g/dL (31.6-35.5); Mean Corpuscular Hemoglobin 30.2 pg (28.0-33.3); Mean Corpuscular Volume 95.9 fL (83.0-100.0); Mean Platelet Volume 12.7 fL (9.4-12.4); Monocytes # 0.3 K/mcL (0.0-1.3); Monocytes % 2.1 %; Platelet Count 123 K/mcL (140-400); Red Blood Count 4.44 M/mcL (4.19-5.50); Red Cell Distribution Width 14.5 % (11.5-14.5); Segmented Neutrophils % 94.2 %; White Blood Count 15.9 K/mcL (4.3-11.1)
[2021-02-13] MEDS: Artificial Tears SOLN 15 ML BOTTLE BOTH EYES SCH ×5 (03:57→20:04)
[2021-02-13 04:04] LABS: INR 2.5; Prothrombin Time 28.4 Seconds (9.4-12.1)
[2021-02-13 04:16] LABS: BUN/Creatinine Ratio 60 (6-26); Blood Urea Nitrogen 53 mg/dL (8-23); Calcium 8.5 mg/dL (8.6-10.3); Carbon Dioxide 40 mEq/L (23-29); Chloride 93 mEq/L (98-107); Glucose 91 mg/dL (70-105); Magnesium 2.4 mg/dL (1.6-2.6); Osmolality,Calculated 308 (280-300); Phosphorous 4.8 mg/dL (2.7-4.5); Potassium 4.9 mEq/L (3.5-5.1); Sodium 142 mEq/L (136-145); eGFR For African Americans > 60 (> 60); eGFR For Non-African Americans > 60 (> 60)
[2021-02-13 04:22] LABS: ABG Base Excess 12 mEq/L (-2 to 3); ABG HCO3 41 mEq/L (21-27); ABG Oxygen Saturation 90 % (95-98); ABG PCO2 71 mmHg (35-45); ABG PH 7.37 pH Units (7.32-7.45); ABG PO2 63 mmHg (85-104); ABG TCO2 44 mEq/L (20-26); Blood Gas VT 450 cc
[2021-02-13] MEDS: *HR* Enoxaparin 120 MG/0.8 ML SYRINGE SQ SCH ×2 (06:10→14:29)
[2021-02-13] MEDS: Pantoprazole 40 MG VIAL IVP SCH (07:31)
[2021-02-13] MEDS: Chlorhexidine Rinse 15 ML MOUTHWASH MM SCH ×2 (07:31→21:39)
[2021-02-13] MEDS: Piperacillin/Tazobactam 3.375 GM in 0.9 % Sodium Chloride Mini Bag 100 ML IVPB SCH ×2 (07:31→15:23)
[2021-02-13] MEDS: Amiodarone Premix 360 MG/200 ML BAG IVC SCH ×2 (07:33→18:11)
[2021-02-13] MEDS: Cisatracurium 200 MG in 0.9 % Sodium Chloride 180 ML IVC SCH ×2 (07:34→17:05)
[2021-02-13] MEDS ORDERED: *HR* Atropine Sulfate 1 MG/10 ML SYRINGE ONE (08:50)
[2021-02-13] MEDS: Norepinephrine 4 MG/254 ML IV.SOLN IVC SCH (10:05)
[2021-02-13] MEDS ORDERED: *HR* Dextrose 50 % in Water (Vial) 50 ML VIAL IVP PRN (10:17)
[2021-02-13] MEDS ORDERED: D5% in Water 1,000 ML IVC PRN (10:17)
[2021-02-13] MEDS ORDERED: Dextrose Gel 15 GM/37.5 ML TUBE PO PRN ×2 (10:17)
[2021-02-13] MEDS: Insulin LISPRO 300 UNITS/3 ML VIAL SUBQ SCH ×2 (12:14→17:25)
[2021-02-13 23:07] LABS: ABG Base Excess 13 mEq/L (-2 to 3); ABG HCO3 43 mEq/L (21-27); ABG Oxygen Saturation 92 % (95-98); ABG PCO2 79 mmHg (35-45); ABG PH 7.34 pH Units (7.32-7.45); ABG PO2 71 mmHg (85-104); ABG TCO2 45 mEq/L (20-26); Blood Gas VT 450 cc
[2021-02-14] MEDS: Insulin LISPRO 300 UNITS/3 ML VIAL SUBQ SCH ×5 (00:39→23:48)
[2021-02-14] MEDS: Artificial Tears SOLN 15 ML BOTTLE BOTH EYES SCH ×7 (00:39→23:38)
[2021-02-14] MEDS: Cisatracurium 200 MG in 0.9 % Sodium Chloride 180 ML IVC SCH ×2 (00:55→15:38)
[2021-02-14] MEDS: Piperacillin/Tazobactam 3.375 GM in 0.9 % Sodium Chloride Mini Bag 100 ML IVPB SCH ×4 (00:55→23:46)
[2021-02-14] MEDS: FentaNYL (PF) 1,000 MCG/100 ML IV.SOLN IVC SCH ×4 (00:56→21:10)
[2021-02-14] MEDS: Ipratropium 1 PUFF INHALER IH SCH ×6 (03:41→23:42)
[2021-02-14 04:09] LABS: ABG Base Excess 10 mEq/L (-2 to 3); ABG HCO3 43 mEq/L (21-27); ABG Oxygen Saturation 92 % (95-98); ABG PCO2 97 mmHg (35-45); ABG PH 7.25 pH Units (7.32-7.45); ABG PO2 78 mmHg (85-104); ABG TCO2 45 mEq/L (20-26); Blood Gas VT 450 cc
[2021-02-14] MEDS: Midazolam HCl 50 MG/100 ML IV.SOLN IVC SCH ×2 (04:21→16:51)
[2021-02-14 04:47] LABS: Basophils % 0.2 %; Eosinophils % 0.2 %; Hematocrit 45.5 % (37.5-50.1); Hemoglobin 14.3 g/dL (12.9-16.9); Immature Granulocytes % 1.1 % (0-4); Lymphocytes # 0.5 K/mcL (0.6-4.6); Lymphocytes % 2.4 %; Mean Corpuscular HGB Conc 31.4 g/dL (31.6-35.5); Mean Corpuscular Volume 98.5 fL (83.0-100.0); Mean Platelet Volume 12.8 fL (9.4-12.4); Monocytes # 0.3 K/mcL (0.0-1.3); Monocytes % 1.5 %; Neutrophils # 18.6 K/mcL (1.6-8.9); Platelet Count 131 K/mcL (140-400); Red Blood Count 4.62 M/mcL (4.19-5.50); Red Cell Distribution Width 14.8 % (11.5-14.5); Segmented Neutrophils % 94.6 %; White Blood Count 19.6 K/mcL (4.3-11.1)
[2021-02-14 05:09] LABS: BUN/Creatinine Ratio 53 (6-26); Blood Urea Nitrogen 55 mg/dL (8-23); Calcium 8.7 mg/dL (8.6-10.3); Carbon Dioxide 38 mEq/L (23-29); Chloride 97 mEq/L (98-107); Glucose 111 mg/dL (70-105); Magnesium 2.7 mg/dL (1.6-2.6); Osmolality,Calculated 304 (280-300); Phosphorous 5.4 mg/dL (2.7-4.5); Potassium 5.2 mEq/L (3.5-5.1); Sodium 139 mEq/L (136-145); eGFR For African Americans > 60 (> 60); eGFR For Non-African Americans > 60 (> 60)
[2021-02-14] MEDS ORDERED: *HR* Metoprolol 5 MG/5 ML VIAL IVP ONE (05:18)
[2021-02-14] MEDS: *HR* Enoxaparin 120 MG/0.8 ML SYRINGE SQ SCH ×2 (05:38→19:09)
[2021-02-14] MEDS: Amiodarone Premix 360 MG/200 ML BAG IVC SCH ×2 (05:39→16:46)
[2021-02-14] MEDS: Pantoprazole 40 MG VIAL IVP SCH (09:43)
[2021-02-14] MEDS: Chlorhexidine Rinse 15 ML MOUTHWASH MM SCH ×2 (09:43→21:25)
[2021-02-14] MEDS: Norepinephrine 4 MG/254 ML IV.SOLN IVC SCH ×4 (13:00→23:47)
[2021-02-14] MEDS: Dexmedetomidine HCl 400 MCG/100 ML MLS IVC SCH (13:55)
[2021-02-14] MEDS: Phenylephrine 10 MG in 0.9 % Sodium Chloride 250 ML IVC SCH ×2 (14:57→17:00)
[2021-02-14] MEDS: Phenylephrine 50 MG in 0.9 % Sodium Chloride 250 ML IVC SCH (20:30)
[2021-02-14] MEDS ORDERED: Metoclopramide 10 MG/2 ML VIAL IVP ONE (22:57)
[2021-02-15] MEDS: Phenylephrine 50 MG in 0.9 % Sodium Chloride 250 ML IVC SCH ×5 (00:51→20:50)
[2021-02-15] MEDS ORDERED: Norepinephrine 4 MG/254 ML IV.SOLN IVC SCH (00:53)
[2021-02-15] MEDS: FentaNYL (PF) 1,000 MCG/100 ML IV.SOLN IVC SCH (01:10)
[2021-02-15] MEDS: Dexmedetomidine HCl 400 MCG/100 ML MLS IVC SCH ×2 (02:49→19:16)
[2021-02-15] MEDS: Artificial Tears SOLN 15 ML BOTTLE BOTH EYES SCH ×6 (02:49→23:55)
[2021-02-15] MEDS: Norepinephrine 4 MG/254 ML IV.SOLN IVC SCH (02:55)
[2021-02-15] MEDS: Ipratropium 1 PUFF INHALER IH SCH ×5 (04:21→20:21)
[2021-02-15 04:47] LABS: ABG Base Excess 4 mEq/L (-2 to 3); ABG HCO3 38 mEq/L (21-27); ABG Oxygen Saturation 92 % (95-98); ABG PCO2 112 mmHg (35-45); ABG PH 7.14 pH Units (7.32-7.45); ABG PO2 90 mmHg (85-104); ABG TCO2 41 mEq/L (20-26); Blood Gas VT 450 cc
[2021-02-15 05:27] LABS: Calcium 8.4 mg/dL (8.6-10.3); Magnesium 2.7 mg/dL (1.6-2.6); Phosphorous 8.8 mg/dL (2.7-4.5); Potassium 5.8 mEq/L (3.5-5.1)
[2021-02-15 05:32] LABS: Hematocrit 44.9 % (37.5-50.1); Lymphocytes % 1.2 %; Mean Corpuscular Hemoglobin 30.2 pg (28.0-33.3); Mean Corpuscular Volume 104.4 fL (83.0-100.0); Monocytes % 1.9 %; Platelet Count 109 K/mcL (140-400); Red Cell Distribution Width 14.9 % (11.5-14.5); Segmented Neutrophils % 95.8 %; White Blood Count 22.7 K/mcL (4.3-11.1)
[2021-02-15] MEDS: Insulin LISPRO 300 UNITS/3 ML VIAL SUBQ SCH ×3 (05:32→17:48)
[2021-02-15 05:33] LABS: Basophils % 0.1 %; Lymphocytes # 0.3 K/mcL (0.6-4.6); Monocytes # 0.4 K/mcL (0.0-1.3); Nucleated Red Blood Cells 0.1 /100 WBC (0)
[2021-02-15 05:35] LABS: Neutrophils # 21.8 K/mcL (1.6-8.9)
[2021-02-15] MEDS: *HR* Enoxaparin 120 MG/0.8 ML SYRINGE SQ SCH (05:49)
[2021-02-15] MEDS: Amiodarone Premix 360 MG/200 ML BAG IVC SCH ×2 (05:50→15:57)
[2021-02-15] MEDS: Cisatracurium 200 MG in 0.9 % Sodium Chloride 180 ML IVC SCH ×2 (05:51→16:01)
[2021-02-15] MEDS: Midazolam HCl 50 MG/100 ML IV.SOLN IVC SCH ×2 (05:52→15:58)
[2021-02-15] MEDS: Norepinephrine 8 MG/258 ML IV.SOLN IVC SCH ×4 (06:12→20:51)
[2021-02-15] MEDS: Pantoprazole 40 MG VIAL IVP SCH (07:44)
[2021-02-15] MEDS: Piperacillin/Tazobactam 3.375 GM in 0.9 % Sodium Chloride Mini Bag 100 ML IVPB SCH ×3 (07:44→23:54)
[2021-02-15] MEDS: Chlorhexidine Rinse 15 ML MOUTHWASH MM SCH ×2 (07:45→20:46)
[2021-02-15] MEDS: FentaNYL (PF) 2,500 MCG/50 ML IV.SOLN IVC SCH ×2 (09:09→19:00)
[2021-02-15] MEDS ORDERED: *HR* Dextrose 50 % in Water (Syg) 50 ML SYRINGE IVP ONE (10:41)
[2021-02-15] MEDS ORDERED: Insulin Human Regular 10 UNIT in 0.9 % Sodium Chloride 10 ML IV ONE ×2 (10:41→12:15)
[2021-02-15] MEDS ORDERED: *HR* Dextrose 50 % in Water (Vial) 50 ML VIAL IVP ONE (11:00)
[2021-02-15] MEDS: Calcium Gluconate 1gm/50mL 1 GM/50 ML BAG IVPB SCH ×2 (12:05→13:45)
[2021-02-15 12:07] LABS: ABG Base Excess 4 mEq/L (-2 to 3); ABG HCO3 36 mEq/L (21-27); ABG Oxygen Saturation 95 % (95-98); ABG PCO2 84 mmHg (35-45); ABG PH 7.23 pH Units (7.32-7.45); ABG PO2 93 mmHg (85-104); ABG TCO2 38 mEq/L (20-26); Blood Gas Modality ASSIST CONTROL; Blood Gas VT 480 cc
[2021-02-15] MEDS: SODIUM ZIRCONIUM CYCLOSILICATE 5 GM POWD.PACK PO SCH (16:01)
[2021-02-15] MEDS ORDERED: Albumin Human 5% 12.5 GM/250 ML IV.SOLN IVPB ONE (23:28)
[2021-02-15] MEDS ORDERED: Albumin Human 5% 25 GM/500 ML IV.SOLN IVPB ONE ×2 (23:45)
[2021-02-16] MEDS: Insulin LISPRO 300 UNITS/3 ML VIAL SUBQ SCH ×2 (00:14→05:24)
[2021-02-16] MEDS: Ipratropium 1 PUFF INHALER IH SCH ×4 (00:30→11:34)
[2021-02-16] MEDS: Phenylephrine 50 MG in 0.9 % Sodium Chloride 250 ML IVC SCH ×2 (01:07→06:00)
[2021-02-16] MEDS: Norepinephrine 8 MG/258 ML IV.SOLN IVC SCH ×2 (01:41→06:24)
[2021-02-16] MEDS: Artificial Tears SOLN 15 ML BOTTLE BOTH EYES SCH ×2 (03:01→08:42)
[2021-02-16] MEDS: Amiodarone Premix 360 MG/200 ML BAG IVC SCH (03:02)
[2021-02-16 03:28] VITALS: TEMP 97.4
[2021-02-16 04:41] LABS: ABG Base Excess 4 mEq/L (-2 to 3); ABG HCO3 34 mEq/L (21-27); ABG Oxygen Saturation 91 % (95-98); ABG PCO2 83 mmHg (35-45); ABG PH 7.22 pH Units (7.32-7.45); ABG PO2 76 mmHg (85-104); ABG TCO2 37 mEq/L (20-26); Blood Gas VT 480 cc
[2021-02-16 05:07] LABS: Basophils % 0.1 %; Hematocrit 37.5 % (37.5-50.1); Hemoglobin 11.5 g/dL (12.9-16.9); Immature Granulocytes % 0.8 % (0-4); Immature Platelets 14.3 % (1.1-6.1); Lymphocytes # 0.3 K/mcL (0.6-4.6); Lymphocytes % 1.4 %; Mean Corpuscular HGB Conc 30.7 g/dL (31.6-35.5); Mean Corpuscular Hemoglobin 31.1 pg (28.0-33.3); Mean Corpuscular Volume 101.4 fL (83.0-100.0); Mean Platelet Volume 13.4 fL (9.4-12.4); Monocytes # 0.5 K/mcL (0.0-1.3); Monocytes % 2.4 %; Nucleated Red Blood Cells 0.1 /100 WBC (0); Red Cell Distribution Width 15.3 % (11.5-14.5); Segmented Neutrophils % 95.3 %; White Blood Count 20.1 K/mcL (4.3-11.1)
[2021-02-16 05:08] LABS: Neutrophils # 19.2 K/mcL (1.6-8.9); Platelet Count 83 K/mcL (140-400)
[2021-02-16 05:17] LABS: Calcium 8.1 mg/dL (8.6-10.3); Magnesium 2.6 mg/dL (1.6-2.6)
[2021-02-16] MEDS: Midazolam HCl 50 MG/100 ML IV.SOLN IVC SCH (05:21)
[2021-02-16] MEDS: Pantoprazole 40 MG VIAL IVP SCH (08:42)
[2021-02-16] MEDS: Chlorhexidine Rinse 15 ML MOUTHWASH MM SCH (08:42)
[2021-02-16] MEDS ORDERED: 0.9 % Sodium Chloride 500 ML ONE (09:08)
[2021-02-16] MEDS: SODIUM ZIRCONIUM CYCLOSILICATE 5 GM POWD.PACK PO SCH (09:32)
[2021-02-16] MEDS ORDERED: *HR* LORazepam 2 MG/ML VIAL IVP PRN (11:44)
[2021-02-16] MEDS: FentaNYL (PF) 2,500 MCG/50 ML IV.SOLN IVC SCH (11:51)
[2021-02-16] MEDS ORDERED: Piperacillin/Tazobactam 3.375 GM in 0.9 % Sodium Chloride Mini Bag 100 ML IVPB SCH (12:00)
[2021-02-16 12:16] VITALS: BP 0/0; PULSE 30; O2SAT 0
== END 2021-02-16 12:31 | disposition expired | DRG 208 ==
LOC: EMEROOARM 18:09 → ICNU 20:05
PROVIDERS: ADMIT Internal Medicine; ATTEND Internal Medicine